=== PATIENT | female | born 1955 | race African-American/Black ===

== ENCOUNTER 2021-11-01 15:15 | Outpatient (RCR) | payer MEDICARE, OTHER | END 2021-11-13 | disposition home or self-care (01) | LOC: WSPT | DX: M25.561 Pain in right knee (principal) ==

== ENCOUNTER 2021-11-28 13:00 | Outpatient (RCR) | payer MEDICARE, OTHER | END 2021-11-28 15:00 | disposition home or self-care (01) | LOC: WSPT 13:00 | DX: M25.561 Pain in right knee (principal) ==

== ENCOUNTER 2022-01-11 14:15 | Outpatient (RCR) | payer MEDICARE, OTHER | END 2022-01-13 | disposition home or self-care (01) | LOC: WSPT | DX: M25.561 Pain in right knee (principal) ==

== ENCOUNTER 2022-02-11 14:15 | Outpatient (RCR) | payer MEDICARE, OTHER | END 2022-02-13 | disposition home or self-care (01) | LOC: WSPT | DX: M25.561 Pain in right knee (principal) ==

== ENCOUNTER → 2022-06-14 | Outpatient (CLI) | payer MEDICARE, OTHER | LOC: MC.RAD 08:57 | DX: N63.20 Unspecified lump in the left breast, unspecified quadrant (principal) ==

== ENCOUNTER 2022-08-12 15:00 | Outpatient (RCR) | payer MEDICARE, OTHER | END 2022-08-13 | LOC: WSPT | DX: M17.11 Unilateral primary osteoarthritis, right knee (principal) ==

== ENCOUNTER 2022-10-11 13:30 | Outpatient (RCR) | payer MEDICARE, OTHER | END 2022-10-13 | disposition home or self-care (01) | LOC: WSPT | DX: Z96.651 Presence of right artificial knee joint (principal) | CPT/HCPCS: G0283-GP ==